=== PATIENT | male | born 1980 | race Hispanic/Latino ===

== ENCOUNTER 2021-06-09 15:40 | Emergency (ER) | payer SELFPAY ==
[2021-06-09] MEDS ORDERED: TETANUS & DIPHTHERIA TOX,ADULT 0.5 ML VIAL ONE (15:54)
[2021-06-09] MEDS ORDERED: DERMABOND SKIN ADHESIVE TOP ONE (15:54)
[2021-06-09] MEDS ORDERED: NA CHLORIDE 0.9% 1,000 ML ONE (15:54)
[2021-06-09 16:30] LABS: Basophils % 0.2 % (0-1.3); Hematocrit 43.1 % (39.6-49.0); Lymphocytes % 8.6 % (15.3-44.8); MPV 8.6 fL (7.6-11.3); RBC Red Blood Cell Count 4.72 M/uL (4.33-5.43)
--- NOTE | 2021-06-09 16:42 | RAD REPORT ---
EXAM DESCRIPTION: CT - Head Brain Wo Cont - 06/09/2021 4:32 pm CLINICAL HISTORY: SEIZURE COMPARISON: Facial Bones W/ Mpr dated 04/06/2018; Head Brain Wo Cont dated 04/06/2018 TECHNIQUE: All CT scans are performed using dose optimization technique as appropriate and may inclu de automated exposure control or mA/KV adjustment according to patient size. FINDINGS: No intracranial hemorrhage, hydrocephalus or extra-axial fluid collection.No areas of brai n edema or evidence of midline shift. The paranasal sinuses and mastoids are clear. The calvarium is intact. IMPRESSION: No acute intracranial abnormality.
[2021-06-09 16:59] LABS: Albumin 4.2 g/dL (3.4-5.0); Bilirubin Total 0.5 mg/dL (0.2-1.0); Potassium 3.5 mmol/L (3.5-5.1); Protein, Total 7.7 g/dL (6.4-8.2)
[2021-06-09 17:26] LABS: Urine Blood Trace-intact (Negative); Urine Glucose Negative (Negative); Urine Protein 1+ (Negative); Urine Specific Gravity 1.025 (1.005-1.030); Urine pH 6.5 (5.0-7.0)
[2021-06-09 17:40] LABS: Barbiturates NEGATIVE (NEGATIVE); Benzodiazepines POSITIVE (NEGATIVE); Cocaine NEGATIVE (NEGATIVE); METHAMPHETAM NEGATIVE (NEGATIVE); Methadone NEGATIVE (NEGATIVE); Opiates POSITIVE (NEGATIVE); Phencyclidine NEGATIVE (NEGATIVE); THC Cannibis POSITIVE (NEGATIVE)
--- NOTE | 2021-06-09 17:57 | ER ---
Nurse's Notes [facility] Name: Naif Schneider Jr Age: 41 yrs Sex: Male : 1980 Arrival Date: 06/09/2021 Time: 15:41 Bed 15 Private MD: Diagnosis: Laceration without foreign body of other part of head;Fall from chair, initial encounter;Other seizures;Cannabis abuse;Sedative, hypnotic or anxiolytic abuse, uncomplicated-Benzodiazepine abuse;Opioid abuse Presentation: 06/09 15:43 Chief complaint: EMS states: coworkers heard pt fall, noted to be having seizure iw activity X 2 minutes, pt was sitting at his desk, +hx of seizures but not on meds, last sz was 2 years ago witnessed by coworkers , pt was A\\T\\OX1 on scene , now OX3 , hit his head and has small laceration to right eyelid , no meds given. Coronavirus screen: At this time, the client does not indicate any symptoms associated with coronavirus-19. Ebola Screen: Patient negative for fever greater than or equal to 101.5 degrees Fahrenheit, and additional compatible Ebola Virus Disease symptoms Patient denies exposure to infectious person. Patient denies travel to an Ebola-affected area in the 21 days before illness onset. No symptoms or risks identified at this time. Initial Sepsis Screen: Does the patient meet any 2 criteria? No. Patient's initial sepsis screen is negative. Does the patient have a suspected source of infection? No. Patient's initial sepsis screen is negative. Risk Assessment: Do you want to hurt yourself or someone else? Patient reports no desire to harm self or others. Onset of symptoms was June 09, 2021. 15:43 Method Of Arrival: EMS: [facility] iw 15:43 Acuity: MARGI 3 iw Triage Assessment: 15:50 General: Appears in no apparent distress. well groomed, Behavior is calm, cooperative, tw2 appropriate for age. 15:50 Pain: Complains of pain in outer aspect of right eyebrow. tw2 15:50 Neuro: Level of Consciousness is awake, alert, obeys commands, Oriented to person, tw2 place, time, situation. Cardiovascular: Patient's skin is warm and dry. Respiratory: Airway is patent Respiratory effort is even, unlabored, Respiratory pattern is regular, symmetrical. Musculoskeletal: Range of motion: intact in all extremities. Historical: - Allergies: 15:47 No Known Allergies; iw - Home Meds: 17:26 phentermine oral [Active]; tw2 - PMHx: 15:47 Seizure; iw 17:26 Hypertension; tw2 - PSHx: 15:47 None; iw - Immunization history:: Client reports having NOT received the Covid vaccine. - Social history:: Smoking status: Patient reports the use of cigarette tobacco products, denies chronic smoking, but will smoke occasionally, Patient uses alcohol, occasionally. Screenin:49 Abuse screen: Denies threats or abuse. Nutritional screening: No deficits noted. tw2 Tuberculosis screening: No symptoms or risk factors identified. Fall Risk None identified. Assessment: 16:49 Reassessment: Patient appears in no apparent distress at this time. No changes from tw2 previously documented assessment. Patient and/or family updated on plan of care and expected duration. Pain level reassessed. Patient is alert, oriented x 3, equal unlabored respirations, skin warm/dry/pink. 17:10 Reassessment: Patient appears in no apparent distress at this time. No changes from tw2 previously documented assessment. Patient and/or family updated on plan of care and expected duration. Pain level reassessed. Patient is alert, oriented x 3, equal unlabored respirations, skin warm/dry/pink. pt states "i thought about the medicine i take and its phentermine for weight loss and i didn't eat breakfast this morning, so i am sure that didn't help". 17:35 Reassessment: provider at bedside at this time. tw2 18:04 Reassessment:. ld1 18:04 Reassessment: provider at bedside at this time. tw2 18:09 Reassessment: Patient appears in no apparent distress at this time. No changes from tw2 previously documented assessment. Patient and/or family updated on plan of care and expected duration. Pain level reassessed. Patient is alert, oriented x 3, equal unlabored respirations, skin warm/dry/pink. Vital Signs: 15:40 BP 147 / 94; Pulse 115; Resp 17; Pulse Ox 100% on R/A; tw2 15:43 Pulse 117; Resp 18; Temp 98.3; Pulse Ox 100% on R/A; Weight 77.11 kg; Height 5 ft. 6 iw in. (167.64 cm); Pain 0/10; 16:49 BP 132 / 93; Pulse 93; Resp 17; Pulse Ox 100% on R/A; tw2 15:43 Body Mass Index 27.44 (77.11 kg, 167.64 cm) iw Shanika Coma Score: 15:50 Eye Response: spontaneous(4). Verbal Response: oriented(5). Motor Response: obeys tw2 commands(6). Total: 15. ED Course: 15:41 Patient arrived in ED. tw2 15:42 Arm band placed on. tw2 15:43 Hemal Marcos NP is PHCP. pm1 15:44 Shola Yan MD is Attending Physician. pm1 15:46 Triage completed. iw 15:51 Side rails up X2. Seizure precautions initiated. quality assurance monitor final on. Pulse ox on. NIBP tw2 on. 15:53 Mildred Arnold RN is Primary Nurse. tw2 16:26 EKG done, by ED staff, reviewed by Hemal Marcos NP. em1 16:32 CT Head Brain wo Cont In Process Unspecified. EDMS 17:26 Maintain EMS IV. Dressing intact. Good blood return noted. Site clean \\T\\ dry. Gauge \\T\\ tw 2 site: 18 g RIGHT ac. 17:56 Regis Young MD is Referral Physician. pm1 18:08 No provider procedures requiring assistance completed. IV discontinued, intact, tw2 bleeding controlled, No redness/swelling at site. Pressure dressing applied. Administered Medications: 16:47 Drug: Tetanus-Diphtheria Toxoid Adult 0.5 ml {Provider Relations Consultant: [employer]. Exp: 11/15/2022. Lot #: [id number]. } Route: IM; Site: right deltoid; 17:26 Follow up: Response: No adverse reaction tw2 16:47 Drug: NS 0.9% 1000 ml Route: IV; Rate: 1000 ml; Site: right antecubital; tw2 18:09 Follow up: Response: No adverse reaction; IV Status: Completed infusion; IV Intake: tw2 1000ml Intake: 18:09 IV: 1000ml; Total: 1000ml. tw2 Outcome: 17:56 Discharge ordered by . pm1 18:09 Discharged to home ambulatory, with significant other. tw2 18:09 Condition: stable 18:09 Discharge instructions given to patient, significant other, Instructed on discharge instructions, follow up and referral plans. medication usage, Demonstrated understanding of instructions, follow-up care, medications, Prescriptions given X 1. 18:09 Patient left the ED. tw2 Signatures: Dispatcher [employer] EDYris Mccann, RN RN Cj Echevarria em1 Hemal Marcos NP HYDRAULIC LIFT DRIVER pm1 Mildred Arnold RN RN tw2 Angelika Baca RN RN ld1 Corrections: (The following items were deleted from the chart) 15:47 15:47 PMHx: None; [facility] 16:54 15:50 Pain: Complains of pain in outer aspect of right eyebrow tw2 tw2 17:27 15:47 Home Meds: None; tw2
--- NOTE | 2021-06-09 17:57 | EDPHYS ---
Physician Documentation [facility] Name: Naif Schneider Jr Age: 41 yrs Sex: Male : 1980 Arrival Date: 06/09/2021 Time: 15:41 Bed 15 Private MD: JORGE Physician Shola Yan HPI: 06/09 16:01 This 41 yrs old Male presents to ER via EMS with complaints of Seizure, pm1 Laceration. 16:01 The patient presents after having a possible seizure episode. Character of seizure(s): pm1 Unknown. Seizure onset: just prior to arrival. Context: occurred at work, occurred while the patient was sitting, Contributing factors: Patient uses phentermine for weight loss. Patient did not eat or drink food today. Seizure Hx: Last seizure: The patient's last seizure Many years ago. Based on last ER visit due to possible drug use. Patient does not take any current medication for seizure, never has. Associated injury: Head/face: Lateral aspect right supraorbital ridge, laceration, 0.5 cm(s). EMS care: none. The patient has not recently seen a physician. Patient sitting at desk at work and then his coworkers heard a fall and apparently he was found on the ground with resulting laceration to right supraorbital ridge. Historical: - Allergies: 15:47 No Known Allergies; iw - Home Meds: 17:26 phentermine oral [Active]; tw2 - PMHx: 15:47 Seizure; iw 17:26 Hypertension; tw2 - PSHx: 15:47 None; iw - Immunization history:: Client reports having NOT received the Covid vaccine. - Social history:: Smoking status: Patient reports the use of cigarette tobacco products, denies chronic smoking, but will smoke occasionally, Patient uses alcohol, occasionally. ROS: 16:01 Constitutional: Negative for fever, chills, and weight loss, Neck: Negative for injury, pm1 pain, and swelling, Cardiovascular: Negative for chest pain, palpitations, and edema, Respiratory: Negative for shortness of breath, cough, wheezing, and pleuritic chest pain, Neuro: Negative for headache, weakness, numbness, tingling, and seizure. 16:01 Abdomen/GI: Negative for abdominal pain, nausea, vomiting, diarrhea, and constipation, Back: Negative for injury and pain, MS/Extremity: Negative for injury and deformity. 16:01 Skin: Positive for laceration(s), of the lateral right supraorbital ridge. 16:01 All other systems are negative. Exam: 16:01 Constitutional: This is a well developed, well nourished patient who is awake, alert, pm1 and in no acute distress. 16:01 Back: No spinal tenderness. No costovertebral tenderness. Full range of motion. Skin: Warm, dry with normal turgor. Normal color with no rashes, no lesions, and no evidence of cellulitis. MS/ Extremity: Pulses equal, no cyanosis. Neurovascular intact. Full, normal range of motion. 16:01 Head/face: Noted is no obvious of injury or deformity except a laceration(s), that is superficial, 0.5 cm(s), of the lateral aspect of right supraorbital ridge. 16:01 Eyes: Extraocular movements: no acute changes, Conjunctiva: no acute changes, no injection, Sclera: no acute changes, icterus, is not appreciated, Lids and lashes: no acute changes. 16:01 Cardiovascular: Exam negative for acute changes, Rate: normal, Rhythm: regular, Pulses: no pulse deficits are appreciated. 16:01 Respiratory: Exam negative for acute changes, respiratory distress, shortness of breath, Breath sounds: are clear throughout. 16:01 Abdomen/GI: Exam negative for acute changes, Inspection: abdomen appears normal, Palpation: abdomen is soft and non-tender, in all quadrants. 16:01 Neuro: Exam negative for acute changes, Orientation: is normal, Mentation: is normal, Motor: is normal, moves all fours. Vital Signs: 15:40 BP 147 / 94; Pulse 115; Resp 17; Pulse Ox 100% on R/A; tw2 15:43 Pulse 117; Resp 18; Temp 98.3; Pulse Ox 100% on R/A; Weight 77.11 kg; Height 5 ft. 6 iw in. (167.64 cm); Pain 0/10; 16:49 BP 132 / 93; Pulse 93; Resp 17; Pulse Ox 100% on R/A; tw2 15:43 Body Mass Index 27.44 (77.11 kg, 167.64 cm) iw Shanika Coma Score: 15:50 Eye Response: spontaneous(4). Verbal Response: oriented(5). Motor Response: obeys tw2 commands(6). Total: 15. Laceration: 17:40 Wound Repair of 0.5cm ( 0.2in ) subcutaneous laceration to lateral aspect of right pm1 supraorbital ridge. Linear shaped.. Distal neuro/vascular/tendon intact. Skin closed with 1-0 Adhesive skin closure using Dermabond. Patient tolerated well. MDM: 15:44 Patient medically screened. pm1 17:14 Data reviewed: vital signs. Data interpreted: Pulse oximetry: on room air is 100 %. pm1 Interpretation: normal. 17:49 Counseling: I had a detailed discussion with the patient and/or guardian regarding: the pm1 historical points, exam findings, and any diagnostic results supporting the discharge/admit diagnosis, lab results, radiology results, the need for outpatient follow up, to return to the emergency department if symptoms worsen or persist or if there are any questions or concerns that arise at home, Discussed patient's UDS findings with him alone. Patient reports using drugs 2 days ago. Patient is also using phentermine for weight loss. Patient reports not eating or drinking well today however he did take his phentermine. Impression is patient likely fainted due to orthostasis and dehydration due to drug use versus seizure. Patient without postictal symptoms on initial presentation here in the ER. 06/09 15:51 Order name: CBC with Diff; Complete Time: 16:44 pm1 06/09 15:51 Order name: CMP; Complete Time: 17:01 pm1 06/09 15:51 Order name: CT Head Brain wo Cont; Complete Time: 16:44 pm1 06/09 15:51 Order name: ETOH Level; Complete Time: 17:14 pm1 06/09 15:51 Order name: UDS; Complete Time: 17:41 pm1 06/09 17:26 Order name: Urine Dipstick-Ancillary; Complete Time: 17:41 EDMS 06/09 15:51 Order name: EKG; Complete Time: 15:52 pm1 06/09 15:51 Order name: EKG - Nurse/Tech; Complete Time: 16:26 pm1 06/09 15:51 Order name: Dermabond; Complete Time: 16:48 pm1 06/09 15:51 Order name: Urine Dipstick-Ancillary (obtain specimen); Complete Time: 17:26 pm1 12/06 15:51 Order name: IV Saline Lock; Complete Time: 16:48 pm1 Administered Medications: 16:47 Drug: Tetanus-Diphtheria Toxoid Adult 0.5 ml {Accounting Machine Servicer: [employer]. Exp: 11/15/2022. Lot #: [id number]. } Route: IM; Site: right deltoid; 17:26 Follow up: Response: No adverse reaction tw2 16:47 Drug: NS 0.9% 1000 ml Route: IV; Rate: 1000 ml; Site: right antecubital; tw2 18:09 Follow up: Response: No adverse reaction; IV Status: Completed infusion; IV Intake: tw2 1000ml Disposition: 06/10 06:55 Co-signature as Attending Physician, Shola Yan MD I agree with the assessment and delmy plan of care. Disposition Summary: 06/09/21 17:56 Discharge Ordered Location: Home pm1 Problem: new pm1 Symptoms: have improved pm1 Condition: Stable pm1 Diagnosis - Laceration without foreign body of other part of head pm1 - Fall from chair, initial encounter pm1 - Other seizures pm1 - Cannabis abuse pm1 - Sedative, hypnotic or anxiolytic abuse, uncomplicated - Benzodiazepine abuse pm1 - Opioid abuse pm1 Followup: pm1 - With: Emergency Department - When: As needed - Reason: Worsening of condition Followup: pm1 - With: Private Physician - When: 2 - 3 days - Reason: Recheck today's complaints, Continuance of care, Re-evaluation by your physician Followup: pm1 - With: Regis Young MD - When: 2 - 3 days - Reason: Recheck today's complaints, Continuance of care, Re-evaluation by your physician Discharge Instructions: - Tissue Adhesive Wound Care pm1 - Seizure, Adult pm1 - Discharge Summary Sheet tw2 Forms: - Medication Reconciliation Form pm1 - Thank You Letter pm1 - Work release form tw2 - Family Work Release tw2 - Antibiotic Education pm1 - Prescription Opioid Use pm1 Prescriptions: - Cephalexin 500 mg Oral Capsule - take 1 capsule by ORAL route every 12 hours for 10 days; 20 capsule; Refills: pm1 0, Product Selection Permitted Signatures: Dispatcher [employer] Shola Sands MD MD cha Williams, Irene, RN RN iw Marinas, Patrick, NP APPLICATION SUPPORT DEVELOPER pm1 Arnold, Mildred, RN RN tw2 Corrections: (The following items were deleted from the chart) 06/09 15:47 15:47 PMHx: None; 17:27 15:47 Home Meds: None; tw2
[2021-06-09 18:15] VITALS: O2SAT 100
[2021-06-09 18:16] VITALS: TEMP 98.3
[2021-06-09 18:17] VITALS: BP 132/93
--- NOTE | 2021-06-10 13:05 | EKG ---
Test Date: 2021-06-09 Test Time: 16:25:12 Health Safety Specialist: MIKE MEASUREMENT RESULTS: Intervals: Rate: 93 ID: [id number] QRSD: 94 QT: 364 QTc: 452 [place]: P: 32 ID: [id number] QRS: -16 T: 57 INTERPRETIVE STATEMENTS: Normal sinus rhythm Minimal voltage criteria for LVH, may be normal variant Borderline ECG Compared to ECG 04/06/2018 13:06:39 Left ventricular hypertrophy now present Sinus tachycardia no longer present Electronically Signed On 06-10-21 13:02:37 HOSPITALITY RECRUITER by Pradip Woodall
== END 2021-06-09 18:09 | disposition home or self-care (01) ==
LOC: ER 15:40
PROC: 0JQ10ZZ Repair Face Subcutaneous Tissue and Fascia, Open Approach (ICD-10-PCS; principal; 2021-06-09)
DX: S01.81XA Laceration without foreign body of other part of head, initial encounter (principal); F12.10 Cannabis abuse, uncomplicated; F13.10 Sedative, hypnotic or anxiolytic abuse, uncomplicated; F11.10 Opioid abuse, uncomplicated; W07.XXXA Fall from chair, initial encounter; Y92.89 Other specified places as the place of occurrence of the external cause; Y99.8 Other external cause status; Z23 Encounter for immunization; I10 Essential (primary) hypertension; F17.210 Nicotine dependence, cigarettes, uncomplicated
CPT/HCPCS: 36415; 70450; 80053; 80307; 80320; 81003; 85025; 90471; 90714; 93005; 96360; 99284; J7030